=== PATIENT | male | born 1990 | race Hispanic/Latino ===

== ENCOUNTER 2020-09-18 20:18 | Emergency (ER) | payer SELFPAY ==
[~2020-09-18 20:18] MED LIST: Sodium Chloride 0.9% 1,000 ML BAG ONE
[2020-09-18] MEDS ORDERED: Famotidine In NaCl 20 mg/50 ml Premix Bag ONE (20:21)
[2020-09-18 23:10] LABS: ALT (SGPT) 33 U/L (8-55); AST (SGOT) 27 U/L (5-34); Albumin 3.6 g/dL (3.5-5.0); Alkaline Phosphatase 67 U/L (40-110); Anion Gap 11 mmol/L (10-20); BUN (Urea Nitrogen) 16 mg/dL (8.9-20.6); Bilirubin, Total 0.3 mg/dL (0.2-1.2); Calc. Creatinine Clearance 0 mL/min (70-130); Calcium 8.1 mg/dL (7.8-10.44); Carbon Dioxide 23 mmol/L (22-29); Chloride 109 mmol/L (98-107); Globulin 2.6 g/dL (2.4-3.5); Glucose 124 mg/dL (70-105); Potassium 4.1 mmol/L (3.5-5.1); Protein, Total 6.2 g/dL (6.0-8.3); Sodium 139 mmol/L (136-145)
[2020-09-19] MEDS ORDERED: diphenhydrAMINE 25 MG CAP ONE (01:12)
[2020-09-19] MEDS ORDERED: Dexamethasone 10 MG/ML VIAL ONE (01:12)
[2020-09-19] MEDS ORDERED: diphenhydrAMINE 50 MG/ML VIAL ONE (01:14)
== END 2020-09-19 01:26 | disposition home or self-care (01) ==
LOC: MADERS 20:18
DX: T63.441A Toxic effect of venom of bees, accidental (unintentional), initial encounter (principal); T78.2XXA Anaphylactic shock, unspecified, initial encounter
CPT/HCPCS: 80053; 96365; 96375; J1100; J1200; J7050; Q0163